=== PATIENT | male | born 1940 | race Caucasian/White ===

== ENCOUNTER → 2019-04-03 | Emergency (ER) | payer OTHER ==
[2019-04-03] MEDS: ONDANSETRON (ODT) 4 MG TAB ODT (08:55)
[2019-04-03] MEDS: HYDROCODONE/APAP (5/325) TAB PO (08:55)
== END | disposition home or self-care (01) ==
LOC: FTE 08:29
DX: S00.33XA Contusion of nose, initial encounter (principal); I10 Essential (primary) hypertension; E10.9 Type 1 diabetes mellitus without complications; I25.10 Atherosclerotic heart disease of native coronary artery without angina pectoris; W06.XXXA Fall from bed, initial encounter; Y92.9 Unspecified place or not applicable; Z79.01 Long term (current) use of anticoagulants; Z79.82 Long term (current) use of aspirin; Z79.84 Long term (current) use of oral hypoglycemic drugs; Z86.73 Personal history of transient ischemic attack (TIA), and cerebral infarction without residual deficits; Z95.1 Presence of aortocoronary bypass graft; Z87.891 Personal history of nicotine dependence
CPT/HCPCS: 70450; 70486; 99284-25

== ENCOUNTER 2019-05-07 08:38 | Inpatient (IN) | payer OTHER ==
[2019-05-07 10:03] LABS: ADD MAN DIFF? NO
[2019-05-07 10:04] LABS: BASOPHILS % 0.3 % (0.0-2.0); EOSINOPHILS # 0.1 10^3/ul (0.0-0.5); EOSINOPHILS % 1.3 % (0.0-7.0); HEMATOCRIT 37.9 % (42.0-52.0); HEMOGLOBIN 12.2 g/dl (14.0-18.0); INR 3.34; LYMPHOCYTES % 10.2 % (15.0-51.0); MEAN CORPUSCULAR HEMOGLOBIN 33.2 pg (29.0-33.0); MEAN CORPUSCULAR HGB CONC 32.2 g/dl (32.0-37.0); MEAN PLATELET VOLUME 9.6 fl (7.4-10.4); MONOCYTE # 0.8 10^3/ul (0.3-0.9); MONOCYTES % 7.6 % (0.0-11.0); NEUTROPHIL # 8.1 10^3/ul (1.6-7.5); NEUTROPHILS % 80.1 % (39.0-77.0); PLATELET COUNT 178 10^3/UL (140-415); PROTIME 33.9 Sec (11.9-14.9); PT RATIO 2.6; RED BLOOD COUNT 3.68 10^6/ul (4.70-6.10)
[2019-05-07 10:04] LABS: WHITE BLOOD COUNT 10.1 10^3/ul (4.8-10.8)
[2019-05-07 10:11] LABS: ALANINE AMINOTRANSFERASE 20 IU/L (13-69); ALBUMIN 3.4 g/dl (3.3-4.9); ALBUMIN/GLOBULIN RATIO 0.97; ALKALINE PHOSPHATASE 71 IU/L (42-121); ANION GAP 8 (5-13); ASPARTATE AMINO TRANSFERASE 23 IU/L (15-46); BILIRUBIN,INDIRECT 0.7 mg/dl (0-1.1); BILIRUBIN,TOTAL 0.7 mg/dl (0.2-1.3); BLOOD UREA NITROGEN 18 mg/dl (7-20); CARBON DIOXIDE 31 mmol/L (21-31); CHLORIDE 102 mmol/L (97-110); CREATININE 0.94 mg/dl (0.61-1.24); GLUCOSE 209 mg/dl (70-220); POTASSIUM 3.4 mmol/L (3.5-5.1); SODIUM 141 mmol/L (135-144); TOTAL PROTEIN 6.9 g/dl (6.1-8.1)
[2019-05-07 11:03] LABS: ADD UMIC YES; UR ASCORBIC ACID NEGATIVE (NEGATIVE); UR BACTERIA FEW /HPF (NONE SEEN); UR BILIRUBIN (Dip) NEGATIVE (NEGATIVE); UR BLOOD (Dip) 2+ mg/dL (NEGATIVE); UR CLARITY CLOUDY (CLEAR); UR COLOR YELLOW (YELLOW); UR GLUCOSE (Dip) NEGATIVE (NEGATIVE); UR KETONES (Dip) NEGATIVE (NEGATIVE); UR LEUKOCYTE ESTERASE (Dip) 3+ Leu/ul (NEGATIVE); UR NITRITE (Dip) NEGATIVE (NEGATIVE); UR RBC 10 /HPF (0-5); UR SPECIFIC GRAVITY (Dip) 1.015 (1.003-1.030); UR SQUAMOUS EPITHELIAL CELL FEW /HPF (FEW); UR TOTAL PROTEIN (Dip) 1+ mg/dl (NEGATIVE); UR UROBILINOGEN (Dip) NEGATIVE (NEGATIVE); UR WBC > 182 /HPF (0-5)
[2019-05-07] MEDS: CEFTRIAXONE 1 GM/50 ML (PMX) 50 ML IVPB (12:00)
[2019-05-07] MEDS ORDERED: ACETAMINOPHEN 325 MG TAB PO ×2 (14:30→16:30)
[2019-05-07] MEDS ORDERED: ONDANSETRON 4 MG INJ IV ×2 (14:30→16:30)
[2019-05-07] MEDS ORDERED: HYDROCODONE/APAP (5/325) TAB PO (16:30)
[2019-05-07] MEDS ORDERED: NACL 0.9% 3 ML SYG IV (16:30)
[2019-05-07] MEDS ORDERED: DEXTROSE 50% 50 ML SYRINGE IV ×2 (17:00)
[2019-05-07] MEDS ORDERED: GLUCOSE GEL 15 GRAM TUBE PO ×2 (17:00)
[2019-05-07] MEDS ORDERED: GLUCOSE GEL 15 GRAM TUBE BUCCAL (17:00)
[2019-05-07] MEDS ORDERED: GLUCAGON 1 MG INJ IM (17:00)
[2019-05-07] MEDS: INSULIN ASPART [NOVOLOG] 3 ML PEN SC ×2 (18:06→20:57)
[2019-05-07] MEDS: NS + KCL 20 MEQ 1,000 ML IV (18:11)
[2019-05-07] MEDS: TAMSULOSIN (SR) 0.4 MG CAP PO (20:57)
[2019-05-07] MEDS: OCULAR LUBRICANT 3.5 GM OPH OINT BOTH EYES (20:57)
[2019-05-08] MEDS: INSULIN ASPART [NOVOLOG] 3 ML PEN SC ×6 (01:00→20:39)
[2019-05-08] MEDS: ACCU-CHEK XX (01:27)
[2019-05-08 04:54] LABS: ADD MAN DIFF? NO
[2019-05-08 05:01] LABS: BASOPHILS % 0.4 % (0.0-2.0); EOSINOPHILS # 0.4 10^3/ul (0.0-0.5); EOSINOPHILS % 4.7 % (0.0-7.0); HEMATOCRIT 36.1 % (42.0-52.0); HEMOGLOBIN 11.5 g/dl (14.0-18.0); LYMPHOCYTES # 1.7 10^3/ul (0.8-2.9); LYMPHOCYTES % 19.1 % (15.0-51.0); MEAN CORPUSCULAR HEMOGLOBIN 32.9 pg (29.0-33.0); MEAN CORPUSCULAR HGB CONC 31.9 g/dl (32.0-37.0); MEAN CORPUSCULAR VOLUME 103.1 fl (82.0-101.0); MEAN PLATELET VOLUME 9.6 fl (7.4-10.4); MONOCYTE # 0.7 10^3/ul (0.3-0.9); MONOCYTES % 7.6 % (0.0-11.0); NEUTROPHIL # 6.1 10^3/ul (1.6-7.5); NEUTROPHILS % 67.9 % (39.0-77.0); PLATELET COUNT 184 10^3/UL (140-415); RED CELL DISTRIBUTION WIDTH 13.2 % (11.5-14.5)
[2019-05-08 05:01] LABS: WHITE BLOOD COUNT 9.1 10^3/ul (4.8-10.8)
[2019-05-08 05:24] LABS: ANION GAP 4 (5-13); BLOOD UREA NITROGEN 19 mg/dl (7-20); CALCIUM 8.5 mg/dl (8.4-10.2); CARBON DIOXIDE 30 mmol/L (21-31); CHLORIDE 106 mmol/L (97-110); CREATININE 0.94 mg/dl (0.61-1.24); GLUCOSE 131 mg/dl (70-220); PHOSPHORUS 2.5 mg/dl (2.5-4.9); POTASSIUM 3.7 mmol/L (3.5-5.1); SODIUM 140 mmol/L (135-144)
[2019-05-08] MEDS: NS + KCL 20 MEQ 1,000 ML IV ×3 (06:04→19:04)
[2019-05-08] MEDS: morphine 2 MG INJ IV ×3 (06:05→23:52)
[2019-05-08 06:13] LABS: HEMOGLOBIN A1C 5.8 % (0-5.9)
[2019-05-08] MEDS: OXYBUTYNIN 5 MG TAB PO (08:44)
[2019-05-08] MEDS: OCULAR LUBRICANT 3.5 GM OPH OINT BOTH EYES ×2 (08:44→20:39)
[2019-05-08] MEDS: DOCUSATE SODIUM 100 MG CAP PO ×2 (12:05→20:37)
[2019-05-08] MEDS: CEFTRIAXONE 1 GM/50 ML (PMX) 50 ML IVPB (12:08)
[2019-05-08 15:28] LABS: FOLATE 9.2 ng/ml (2.8-20.0)
[2019-05-08] MEDS: WARFARIN 7.5 MG TAB PO ×2 (17:15→17:52)
[2019-05-08] MEDS: TAMSULOSIN (SR) 0.4 MG CAP PO (20:38)
[2019-05-09] MEDS: INSULIN ASPART [NOVOLOG] 3 ML PEN SC ×6 (01:00→21:00)
[2019-05-09] MEDS: ACCU-CHEK XX (02:00)
[2019-05-09] MEDS: HALOPERIDOL 5 MG INJ IM (02:08)
[2019-05-09] MEDS: morphine 2 MG INJ IV ×4 (03:55→23:07)
[2019-05-09] MEDS: NS + KCL 20 MEQ 1,000 ML IV ×2 (05:19→17:47)
[2019-05-09 09:34] LABS: INR 3.86; PROTIME 37.9 Sec (11.9-14.9)
[2019-05-09] MEDS: DOCUSATE SODIUM 100 MG CAP PO ×2 (10:27→21:07)
[2019-05-09] MEDS: OCULAR LUBRICANT 3.5 GM OPH OINT BOTH EYES ×2 (11:11→21:11)
[2019-05-09] MEDS: OXYBUTYNIN 5 MG TAB PO (11:12)
[2019-05-09] MEDS: CEFTRIAXONE 1 GM/50 ML (PMX) 50 ML IVPB (12:11)
[2019-05-09] MEDS: MEMANTINE 10 MG TAB PO (21:07)
[2019-05-09] MEDS: TAMSULOSIN (SR) 0.4 MG CAP PO (21:11)
[2019-05-10] MEDS: INSULIN ASPART [NOVOLOG] 3 ML PEN SC ×5 (00:55→17:57)
[2019-05-10] MEDS: ACCU-CHEK XX (02:00)
[2019-05-10 05:18] LABS: ADD MAN DIFF? NO
[2019-05-10 05:25] LABS: WHITE BLOOD COUNT 9.7 10^3/ul (4.8-10.8)
[2019-05-10 05:25] LABS: BASOPHILS % 0.4 % (0.0-2.0); EOSINOPHILS # 0.3 10^3/ul (0.0-0.5); EOSINOPHILS % 3.5 % (0.0-7.0); HEMATOCRIT 39.4 % (42.0-52.0); HEMOGLOBIN 12.5 g/dl (14.0-18.0); LYMPHOCYTES # 1.7 10^3/ul (0.8-2.9); MEAN CORPUSCULAR HEMOGLOBIN 32.7 pg (29.0-33.0); MEAN CORPUSCULAR HGB CONC 31.7 g/dl (32.0-37.0); MEAN CORPUSCULAR VOLUME 103.1 fl (82.0-101.0); MEAN PLATELET VOLUME 9.5 fl (7.4-10.4); MONOCYTE # 0.8 10^3/ul (0.3-0.9); MONOCYTES % 8.3 % (0.0-11.0); NEUTROPHIL # 6.7 10^3/ul (1.6-7.5); NEUTROPHILS % 69.4 % (39.0-77.0); PLATELET COUNT 229 10^3/UL (140-415); RED BLOOD COUNT 3.82 10^6/ul (4.70-6.10); RED CELL DISTRIBUTION WIDTH 12.7 % (11.5-14.5)
[2019-05-10 05:45] LABS: ANION GAP 8 (5-13); BLOOD UREA NITROGEN 13 mg/dl (7-20); CARBON DIOXIDE 28 mmol/L (21-31); CHLORIDE 104 mmol/L (97-110); CREATININE 0.83 mg/dl (0.61-1.24); GLUCOSE 141 mg/dl (70-220); POTASSIUM 4.2 mmol/L (3.5-5.1); SODIUM 140 mmol/L (135-144)
[2019-05-10 06:16] LABS: PT RATIO 4.3
[2019-05-10 06:57] LABS: PROTIME 55.1 Sec (11.9-14.9)
[2019-05-10 07:00] LABS: INR 6.26
[2019-05-10] MEDS: OXYBUTYNIN 5 MG TAB PO (08:40)
[2019-05-10] MEDS: OCULAR LUBRICANT 3.5 GM OPH OINT BOTH EYES ×3 (08:40→21:56)
[2019-05-10] MEDS: DOCUSATE SODIUM 100 MG CAP PO ×3 (08:40→21:55)
[2019-05-10] MEDS: MEMANTINE 10 MG TAB PO ×3 (08:41→21:55)
[2019-05-10] MEDS: PHYTONADIONE 10 MG/ML INJ SC (08:41)
[2019-05-10] MEDS: morphine 2 MG INJ IV (08:44)
[2019-05-10] MEDS: CEFTRIAXONE 1 GM/50 ML (PMX) 50 ML IVPB (12:13)
[2019-05-10] MEDS ORDERED: INSULIN ASPART [NOVOLOG] 3 ML PEN SC (21:00)
[2019-05-10] MEDS: TAMSULOSIN (SR) 0.4 MG CAP PO ×2 (21:00→21:55)
[2019-05-11] MEDS: ACCU-CHEK XX (02:00)
[2019-05-11] MEDS: OXYBUTYNIN 5 MG TAB PO (08:37)
[2019-05-11] MEDS: DOCUSATE SODIUM 100 MG CAP PO (08:37)
[2019-05-11] MEDS: MEMANTINE 10 MG TAB PO ×2 (08:37→20:22)
[2019-05-11] MEDS: Insulin NOVOLOG SS MILD Algorithm (SS with meals and bedtime) SC ×4 (08:38→20:21)
[2019-05-11] MEDS: OCULAR LUBRICANT 3.5 GM OPH OINT BOTH EYES ×2 (09:38→20:21)
[2019-05-11] MEDS: CEFTRIAXONE 1 GM/50 ML (PMX) 50 ML IVPB (11:23)
[2019-05-11] MEDS ORDERED: ARTIFICIAL TEARS 15 ML OPH BOTH EYES (15:30)
[2019-05-11] MEDS ORDERED: DOCUSATE SODIUM 100 MG CAP PO (17:00)
[2019-05-11] MEDS: TAMSULOSIN (SR) 0.4 MG CAP PO (20:22)
[2019-05-11] MEDS: HALOPERIDOL 5 MG INJ IM (23:06)
[2019-05-12] MEDS: ACCU-CHEK XX ×2 (02:00→23:23)
[2019-05-12 06:13] LABS: PROTIME 15.3 Sec (11.9-14.9); PT RATIO 1.2
[2019-05-12] MEDS: Insulin NOVOLOG SS MILD Algorithm (SS with meals and bedtime) SC ×4 (07:47→20:48)
[2019-05-12] MEDS: DOCUSATE SODIUM 100 MG CAP PO (08:56)
[2019-05-12] MEDS: MEMANTINE 10 MG TAB PO ×2 (08:56→20:47)
[2019-05-12] MEDS: OXYBUTYNIN 5 MG TAB PO (08:56)
[2019-05-12] MEDS: OCULAR LUBRICANT 3.5 GM OPH OINT BOTH EYES ×2 (08:56→20:48)
[2019-05-12] MEDS: TAMSULOSIN (SR) 0.4 MG CAP PO (20:50)
[2019-05-13] MEDS: DOCUSATE SODIUM 100 MG CAP PO (08:48)
[2019-05-13] MEDS: MEMANTINE 10 MG TAB PO ×2 (08:49→21:08)
[2019-05-13] MEDS: OXYBUTYNIN 5 MG TAB PO (08:49)
[2019-05-13] MEDS: Insulin NOVOLOG SS MILD Algorithm (SS with meals and bedtime) SC ×4 (08:53→21:00)
[2019-05-13] MEDS: OCULAR LUBRICANT 3.5 GM OPH OINT BOTH EYES ×2 (08:53→21:08)
[2019-05-13] MEDS: WARFARIN 5 MG TAB PO (17:59)
[2019-05-13] MEDS: TAMSULOSIN (SR) 0.4 MG CAP PO (21:08)
[2019-05-14] MEDS: HALOPERIDOL 5 MG INJ IM (01:30)
[2019-05-14] MEDS: LORAZEPAM 2 MG INJ IV (01:53)
[2019-05-14] MEDS: ACCU-CHEK XX (02:00)
[2019-05-14] MEDS: Insulin NOVOLOG SS MILD Algorithm (SS with meals and bedtime) SC ×4 (08:36→20:45)
[2019-05-14] MEDS: MEMANTINE 10 MG TAB PO ×2 (08:36→20:44)
[2019-05-14] MEDS: OCULAR LUBRICANT 3.5 GM OPH OINT BOTH EYES ×2 (08:36→20:45)
[2019-05-14] MEDS: DOCUSATE SODIUM 100 MG CAP PO (08:37)
[2019-05-14] MEDS: OXYBUTYNIN 5 MG TAB PO (08:37)
[2019-05-14] MEDS: WARFARIN 5 MG TAB PO (17:39)
[2019-05-14] MEDS: TAMSULOSIN (SR) 0.4 MG CAP PO (20:44)
== END 2019-05-14 20:50 | DRG 871 ==
LOC: E/R 08:38 → MS1 14:12
DX: A41.9 Sepsis, unspecified organism (principal); G93.41 Metabolic encephalopathy; N41.0 Acute prostatitis; F01.50 Vascular dementia, unspecified severity, without behavioral disturbance, psychotic disturbance, mood disturbance, and anxiety; E87.6 Hypokalemia; R65.20 Severe sepsis without septic shock; D64.9 Anemia, unspecified; E11.9 Type 2 diabetes mellitus without complications; I10 Essential (primary) hypertension; Z79.4 Long term (current) use of insulin; Z95.0 Presence of cardiac pacemaker
CPT/HCPCS: 70450; 71045; 73030; 73030-RT; 73060; 73060-RT; 80048; 80053; 81001; 82607; 82746; 82962; 83036; 83605; 83735; 84100; 85025; 85610; 87040-91; 92526; 92610; 93971; 96374; 97116; 97162; 97530; 99217; 99285-25